=== PATIENT | female | born 1960 | race Caucasian/White ===

== ENCOUNTER → 2020-11-10 15:48 | Outpatient (CLI) | payer OTHER, SELFPAY ==
--- NOTE | 2020-11-10 | DI.MRI.S_ITS ---
PROCEDURE: MR KNEE LT WO CON INDICATIONS: other specified arthritis, left knee TECHNIQUE: Noncontrast sagittal PD fast spin echo and T2 fast spin echo with fat saturation, sagittal 3-D FLASH with fat saturation; coronal T1 spin echo and PD fast spin echo with fat saturation, and axial PD fast spin echo with fat saturation through the knee. COMPARISON: None. FINDINGS: Image quality: Degraded by body habitus and motion artifact. Menisci: Medial extrusion of the medial meniscus is present, which demonstrates linear and amorphous high signal intensity within its anterior horn, body, and posterior horn, demonstrating superior and inferior articular surface extension, indicating complex tearing. There is amorphous high signal intensity within the body of the lateral meniscus, demonstrating vague superior articular surface extension, suggestive of degenerative tearing. Cruciate ligaments: The anterior and posterior cruciate ligaments appear intact. Medial structures: The medial collateral ligament appears intact. Visualized portions of the pes anserinus tendons appear normal. No abnormal bursal fluid. Lateral structures: The lateral collateral ligament, long and short heads of the biceps femoris tendon appear intact. The popliteus tendon appears normal. Iliotibial band appears normal. Anterior structures: The quadriceps and patellar tendons appear intact. Patellar alignment is normal. No femoral trochlear dysplasia or ventral trochlear prominence. No edema in the infrapatellar fat pad. Bones and cartilage: No bone marrow contusions or fractures. There is mild subchondral degenerative marrow edema within the medial femoral condyle and medial tibial plateau. Severe tricompartmental periarticular osteophyte formation is present. Severe articular cartilage loss diffusely overlies the weight-bearing aspects of the medial femoral condyle and medial tibial plateau. Patellofemoral compartment articular cartilage is not well seen. Joint space: There is a moderate knee joint effusion and a trace Altman's cyst. Small ganglion cyst along the popliteus. Normal appearing synovial plicae are incidentally noted. IMPRESSION: 1. Limited examination secondary to body habitus and motion artifact. 2. Medial and lateral meniscal tearing. 3. Tricompartmental osteoarthritis with associated articular cartilage loss. 4. Knee joint effusion and Altman's cyst. Small ganglion cyst along the popliteus. Dictated by: Alexandra Smith M.D. on 11/11/2020 at 9:05 Approved by: Alexandra Smith M.D. on 11/11/2020 at 9:08
== END ==
PROVIDERS: Family Provider Family Medicine; PCP Family Medicine; Referring Provider Physician Assistant Medical; Visit Provider Physician Assistant Medical
DX: M13.862 Other specified arthritis, left knee (principal); S83.242A Other tear of medial meniscus, current injury, left knee, initial encounter; S83.282A Other tear of lateral meniscus, current injury, left knee, initial encounter; M25.462 Effusion, left knee; M71.22 Synovial cyst of popliteal space [Baker], left knee
CPT/HCPCS: 73721

== ENCOUNTER → 2022-01-14 10:02 | Outpatient (CLI) | payer OTHER, SELFPAY ==
[2022-01-14 11:00] LABS: COVID19 -Nasal RAPID Negative (Negative)
== END ==
PROVIDERS: Family Provider Family Medicine; PCP Family Medicine; Visit Provider Family Medicine Sleep Medicine
DX: Z20.822 Contact with and (suspected) exposure to COVID-19 (principal)
CPT/HCPCS: 87635; C9803

== ENCOUNTER 2022-01-17 06:46 | Day surgery (SDC) | payer OTHER, SELFPAY ==
[2022-01-17] VITALS (8 sets, daily range): BP systolic 114–154; BP diastolic 66–79; PULSE 59–72; RESP 8–16; TEMP 36.5–36.8; O2SAT 92–96; BMI 48.2
--- NOTE | 2022-01-17 | PATH_ITS ---
[facility] Accession Number: [id number] . 01 Material submitted: . PART A: colon - CECUM POLYP PART B: colon - ASCENDING COLON POLYP . 02 Diagnosis: A. Cecum, Polyp, Biopsy: Tubular adenoma. . B. Ascending Colon, Polyp, Biopsy: Tubular adenoma. V 01/20/2022 1542 Local . 02 Electronically signed: . Molly Serra MD, Pathologist NPI- [id number] . 01 Gross description: . Part A: CECUM POLYP: Received in formalin is 1 fragment(s) of maxwell, soft tissue measuring 0.2 x 0.2 x 0.1 cm submitted entirely in 1 cassette(s) Part B: ASCENDING COLON POLYP: Received in formalin is 1 fragment(s) of maxwell, soft tissue measuring 0.4 x 0.2 x 0.1 cm submitted entirely in 1 cassette(s) /S 01/18/2022 0831 Local . 02 Pathologist provided ICD-10: D12.0, D12.2 . 02 CPT . 343795, 048833 Specimen Comment: A courtesy copy of this report has been sent to [phone] Performed at: 01 [facility] [address], [place], [place] [id number] MD Dane Thrasher MD Phone: [phone] Performed at: 02 [facility] [address] [place], [place] [id number] MD Molly Serra MD Phone: [phone]
[2022-01-17] MEDS: SODIUM CHLORIDE 0.9% 1,000 ML 84 ML IV (08:04)
--- NOTE | 2022-01-17 08:10 | PM.HP.1 ---
History of Present Illness History of Present Illness Date Patient Seen: 01/17/22 Time Patient Seen: 08:11 Chief complaint: SDC Narrative: Indicated for colon cancer screening. Meds Home Medications and Allergies Home Medications Medication Instructions Recorded Confirmed Type paroxetine HCl 20 mg tablet (Paxil) 30 mg PO QDAY #0 05/18/11 01/17/22 History trazodone 50 mg tablet 50 mg PO QDAY #0 05/18/11 History Calcium Carbonate/Vitamin D 3,000 cap PO #0 09/01/11 History (#CALCIUM) Fish Oil (#FISH OIL) 1 iu PO #0 09/01/11 History cholecalciferol (vitamin D3) 25 1,000 iu PO #0 09/01/11 History mcg (1,000 unit) tablet (Vitamin D3) metoprolol tartrate 25 mg tablet 50 mg PO BID #0 09/01/11 01/17/22 History amlodipine 10 mg tablet 10 mg PO QDAY #0 10/10/17 01/17/22 History docusate sodium 100 mg capsule 100 mg PO BID #20 cap 10/14/17 01/17/22 Rx hydrocodone 5 mg-acetaminophen 325 1 - 2 tab PO Q4HP PRN #30 tab 10/14/17 01/17/22 Rx mg tablet mineral oil-chondrus 2.5 mL/5 mL 30 ml PO BID #720 ml 10/14/17 Rx oral emulsion (Kondremul) cetirizine 10 mg tablet 10 mg PO QDAY #0 10/25/17 01/17/22 History Allergies Allergy/AdvReac Type Severity Reaction Status Date / Time hydrocodone [HYDROCODONE] AdvReac Unknown NIGHTMARES Verified 01/17/22 08:04 Review of Systems Review of Systems ROS: Yes All systems reviewed with the patient and are negative except as otherwise documented Exam Const General: cooperative and comfortable Orientation: alert HENMT Head: normocephalic Ears: external ears normal Nose: external nose normal Face and sinus: normal facial exam Mouth: oral mucosae normal Eyes General: appearance normal, both eyes and all related structures Neck Neck: normal visual inspection Chest Chest: normal inspection of the chest Resp Effort & Inspection: normal respiratory effort Cardio Rate: regular rate GI Inspection: normal to inspection Skin General: no rashes or lesions noted and No jaundice Neuro General: patient alert and moves all extremities Cognition: normal cognition Speech: speech normal Extrem General: no pedal edema Psych Appearance: grossly normal Assessment & Plan Assessment & Plan narrative: 61-year-old female here for colon cancer screening. Colonoscopy is pursued today. Time Spent With Patient Critical Care time: I spent a total of [] minutes of critical care time on this patient's care today; this time is exclusive of procedural time.
--- NOTE | 2022-01-17 08:12 | PM.PREOP ---
Pre-operative Note COVID-19 COVID-19 status: Negative Result date/Date tested (Pos, Neg/Pending): 01/14/22 Criteria for continued procedure: Possibility delay results in more complex future surgery or treatment Interval Note History & Physical reviewed/Exam performed by Physician: Yes Changes to H&P: No ASA Class (for procedural sedation): III
--- NOTE | 2022-01-17 09:07 | PM.OP.COLON ---
Operative Date/Time/Diagnoses Date of procedure: 01/17/22 Time of procedure: 09:07 Pre-op diagnosis: Colon cancer screening Post-op diagnosis: same Procedure & Clinicians Study performed: Colonoscopy with hot snare polypectomy and cold forceps polypectomy Same procedure as scheduled: Yes Indications: Colon cancer screening Surgeon: Robin Fuentes Procedure Notes SCOAP/Timeout: Done Procedure in detail: After the risks and benefits were explained, written and verbal informed consent was obtained. The patient was brought into the procedure room and placed into the left lateral decubitus position. Please see nurse aviation technician aircraft notes for sedation details Digital rectal examination was accomplished. The scope was introduced into the patient and advanced under direct visualization to the cecum as identified by the appendiceal orifice and ileocecal valve. The scope was slowly withdrawn to carefully examine the mucosa for any defects or lesions. Comprehensive imaging was accomplished throughout the rectum including the dentate line. The colon was decompressed, the scope was then removed from the patient who tolerated the procedure well. Bowel prep adequate Adult colonoscope Scope withdrawal time: 11 minutes Sedation minutes: 19 Complications: none Impression: There was an end-to-side anastomosis that was patent and normal at around 20 cm from the anal verge. There were some scattered diverticula in the left colon proximal to the anastomosis. In the ascending colon there was an approximately 6 mm sessile polyp removed with hot snare. In the cecum there was a diminutive 4 mm polyp removed with cold forceps. Endoscopic diagnosis 1. Diverticulosis 2. Patent left colon anastomosis 3. Colon polyps Post-procedure Plan for aftercare: 1. Await histopathology 2. Surveillance colonoscopy timing will be contingent on pathology results. Disposition: PACU
== END 2022-01-17 10:01 | disposition home or self-care (01) ==
PROVIDERS: Family Provider Family Medicine; PCP Physician Assistant; Referring Provider Internal Medicine Gastroenterology; Visit Provider Internal Medicine Gastroenterology
PROC: 0DJD8ZZ Inspection of Lower Intestinal Tract, Via Natural or Artificial Opening Endoscopic (ICD-10-PCS; CPT 45378; principal; 2022-01-17 08:30)
DX: Z12.11 Encounter for screening for malignant neoplasm of colon (principal); K57.30 Diverticulosis of large intestine without perforation or abscess without bleeding; D12.0 Benign neoplasm of cecum; D12.2 Benign neoplasm of ascending colon
CPT/HCPCS: 45385; 45380; J2704

== ENCOUNTER 2022-02-25 22:00 | Emergency (ER) | payer OTHER, SELFPAY ==
--- NOTE | 2022-02-25 22:04 | DI.RAD.S_ITS ---
PROCEDURE: XR CHEST 1V INDICATIONS: chest pain TECHNIQUE: One view of the chest was acquired. COMPARISON: None. FINDINGS: Surgical changes and devices: None. Lungs and pleura: Lungs are clear. No pleural effusions or pneumothorax. Mediastinum: Mediastinal contours appear normal. Heart size is normal. Bones and chest wall: No suspicious bony lesions. Overlying soft tissues appear unremarkable. IMPRESSION: 1. No acute cardiopulmonary disease. Dictated by: Dane Howard M.D. on 02/25/2022 at 23:25 Approved by: Dane Howard M.D. on 02/25/2022 at 23:26
[2022-02-25 22:07] VITALS: BP 177/79; PULSE 70; O2SAT 96
[2022-02-25 22:12] VITALS: BP 177/79; PULSE 71; RESP 18; TEMP 36.9; O2SAT 97; BMI 48.2
[2022-02-25 22:19] LABS: Add Manual Diff / Slide Review NO; Basophils Absolute Auto 100 /uL (0-100); Basophils Percent Auto 0.7 % (0-2); Eosinophils Absolute Auto 200 /uL (0-450); Eosinophils Percent Auto 1.9 % (2-4); Hematocrit 39.7 % (36-46); Hemoglobin 13.7 g/dL (12.0-16.0); Lymphocytes Absolute Auto 3000 /uL (1100-4500); Lymphocytes Percent Auto 36.7 % (25-40); Mean Corpuscular HGB Conc 34.4 % (30-36); Mean Corpuscular Hemoglobin 31.1 PG (26-34); Mean Corpuscular Volume 90.5 fL (80-100); Monocytes Absolute Auto 700 /uL (0-900); Monocytes Percent Auto 8.9 % (3-14); Neutrophils Absolute Auto 4300 /uL (1500-7000); Neutrophils Percent Auto 51.8 % (50-75); Platelet Count 323 X10^3/uL (150-400); Red Blood Cell Count 4.39 X10^6/uL (4.0-5.2); Red Cell Distribution Width 13.9 % (11.6-14.8); White Blood Cell Count 8.3 X10^3/uL (4.5-11.0)
[2022-02-25 22:30] VITALS: BP 145/66; PULSE 62; RESP 21; O2SAT 96
[2022-02-25 22:30] LABS: Alanine Aminotransferase 37 IU/L (<35); Albumin 4.1 g/dL (3.5-5.0); Albumin Globulin Ratio 1.2 (1.0-2.8); Alkaline Phosphatase 122 U/L (38-126); Aspartate Aminotransferase 33 IU/L (14-36); BUN Creatinine Ratio 37.1 (6-22); Bilirubin Total 0.6 mg/dL (0.2-1.3); Blood Urea Nitrogen 26 mg/dL (7-17); Calcium 8.7 mg/dL (8.4-10.2); Carbon Dioxide 28 mmol/L (22-32); Chloride 101 mmol/L (98-107); Creatine Kinase 130 U/L (30-135); Estimated Glomerular Filt Rate > 60 mL/min (>60); Globulin 3.3 g/dL (1.7-4.1); Glucose 136 mg/dL (80-110); Lipase 102 U/L (23-300); Potassium 3.7 mmol/L (3.4-5.1); Sodium 139 mmol/L (137-145); Total Protein 7.4 g/dL (6.3-8.2)
[2022-02-25 22:41] LABS: Troponin I < 0.012 ng/mL (0.01-0.034)
--- NOTE | 2022-02-25 22:42 | ED_ITS ---
HPI - General Adult General Chief complaint: Shortness of Breath/Dyspnea Stated complaint: Heart troubles Time Seen by Provider: 02/25/22 22:03 Source: patient Mode of arrival: Ambulatory History of Present Illness HPI narrative: 61-year old female here for evaluation fatigue in generally not feeling well. She also states she had some shortness of breath. Symptoms started when she was lying in bed. Denied chest pain. No nausea vomiting. No headache. No chest pain. No coughing. No fevers. No abdominal pain. No skin rashes. No change in bowel habits. She states that she checked her oxygen saturations at home the rate 88%. She recently had an extensive cardiac workup by her director of occupational health. They did make some medication changes. No recommendation for interventional evaluation. Has not tried anything for the symptoms prior to arrival. She has taken all of her medications as directed. Related Data Home Medications Medication Instructions Recorded Confirmed paroxetine HCl 20 mg tablet (Paxil) 30 mg PO QDAY ##0 05/18/11 01/17/22 trazodone 50 mg tablet 50 mg PO QDAY ##0 05/18/11 Calcium Carbonate/Vitamin D 3,000 cap PO ##0 09/01/11 (#CALCIUM) Fish Oil (#FISH OIL) 1 iu PO ##0 09/01/11 cholecalciferol (vitamin D3) 25 1,000 iu PO ##0 09/01/11 mcg (1,000 unit) tablet (Vitamin D3) metoprolol tartrate 25 mg tablet 50 mg PO BID ##0 09/01/11 01/17/22 amlodipine 10 mg tablet 10 mg PO QDAY ##0 10/10/17 01/17/22 cetirizine 10 mg tablet 10 mg PO QDAY ##0 10/25/17 01/17/22 Previous Rx's Medication Instructions Recorded docusate sodium 100 mg capsule 100 mg PO BID #20 caps 10/14/17 hydrocodone 5 mg-acetaminophen 325 1 - 2 tab PO Q4HP PRN #30 tabs 10/14/17 mg tablet mineral oil-chondrus 2.5 mL/5 mL 30 ml PO BID #720 mL 10/14/17 oral emulsion (Kondremul) Allergies Allergy/AdvReac Type Severity Reaction Status Date / Time hydrocodone [HYDROCODONE] AdvReac Unknown NIGHTMARES Verified 01/17/22 08:04 Review of Systems Constitutional Constitutional: Denies chills, Reports fatigue, Denies fever(s) and Denies headache(s) ENT Ears, Nose, Mouth, and Throat: Denies headache(s) Cardiovascular Cardiovascular: Denies chest pain and Denies rapid heart rate Respiratory Respiratory: Reports as per HPI and Reports system reviewed and no additional complaints, except as documented Gastrointestinal Gastrointestinal: Reports system reviewed and no additional complaints, except as documented Musculoskeletal Musculoskeletal: Reports system reviewed and no additional complaints, except as documented Integumentary/Breasts Skin/Breast: Reports system reviewed and no additional complaints, except as documented Neurologic Neurologic: Denies headache(s) Endocrine Endocrine: Reports fatigue Hematologic/Lymphatic On Anticoagulants: No Patient History Medical History Diverticula of colon Social History household members: none Smoking Status: Never smoker alcohol intake: never Smoking Status: Never smoker Substance Use Type: does not use Exam Initial Vital Signs Initial Vital Signs: Vital Signs Pulse Rate 70 02/25/22 22:07 Blood Pressure 177/79 H 02/25/22 22:07 Pulse Oximetry 96 02/25/22 22:07 Const General: cooperative and comfortable HENMT Head: normal to inspection Resp Effort & Inspection: normal respiratory effort Auscultation: clear to auscultation bilaterally Cardio Rate: regular rate Rhythm: regular rhythm Skin General: no rashes or lesions noted Neuro General: patient alert, patient awake and moves all extremities Extrem General: normal to inspection and capillary refill normal Psych Appearance: grossly normal Course Orders Ordered: ED Orders 02/25/22 22:04 XR chest 1V Stat EKG-12 Lead Stat 02/25/22 22:12 Complete Blood Count AUTO DIFF Stat Comprehensive Metabolic Panel Stat Lipase Stat Troponin & CK Cardiac Panel Stat 02/26/22 00:15 Troponin I Stat Vital Signs Vital signs: Vital Signs - 8 hr 02/25/22 22:12 02/25/22 22:07 02/25/22 22:07 Temperature 98.4 F Pulse Rate 71 70 Respiratory Rate 18 Blood Pressure 177/79 H 177/79 H Pulse Oximetry 97 96 Oxygen Delivery Method Room Air 02/25/22 22:30 02/25/22 22:30 02/25/22 23:00 Temperature Pulse Rate 62 61 Respiratory Rate 21 28 H Blood Pressure 145/66 H Pulse Oximetry 96 96 Oxygen Delivery Method 02/25/22 23:01 02/25/22 23:01 02/25/22 23:30 Temperature Pulse Rate 61 Respiratory Rate 15 Blood Pressure 153/72 H 147/68 H Pulse Oximetry 95 Oxygen Delivery Method 02/25/22 23:30 02/26/22 00:00 02/26/22 00:01 Temperature Pulse Rate 62 58 L 56 L Respiratory Rate 38 H 16 20 Blood Pressure Pulse Oximetry 95 93 92 Oxygen Delivery Method Room Air Room Air 02/26/22 00:01 02/26/22 00:30 02/26/22 00:30 Temperature Pulse Rate 56 L Respiratory Rate 21 Blood Pressure 106/52 L 149/72 H Pulse Oximetry 94 Oxygen Delivery Method 02/26/22 01:00 02/26/22 01:00 Temperature Pulse Rate 54 L Respiratory Rate 19 Blood Pressure 156/74 H Pulse Oximetry 95 Oxygen Delivery Method Room Air Medical Decision Making Lab Data Lab results reviewed: Yes I reviewed the patient's lab results. Result diagrams: 02/25/22 22:12 02/25/22 22:12 Labs: Lab Results 02/25/22 02/25/22 02/26/22 Range/Units 22:12 22:12 00:15 WBC 8.3 (4.5-11.0) X10^3/uL RBC 4.39 (4.0-5.2) X10^6/uL Hgb 13.7 (12.0-16.0) g/dL Hct 39.7 (36-46) % MCV 90.5 (80-100) fL MCH 31.1 (26-34) PG MCHC 34.4 (30-36) % RDW 13.9 (11.6-14.8) % Plt Count 323 (150-400) X10^3/uL Neut % (Auto) 51.8 (50-75) % Lymph % (Auto) 36.7 (25-40) % [place] % (Auto) 8.9 (3-14) % Eos % (Auto) 1.9 L (2-4) % Baso % (Auto) 0.7 (0-2) % Neut # (Auto) 4300 (8035-1966) /uL Lymph # (Auto) 3000 (7222-7113) /uL [place] # (Auto) 700 (0-900) /uL Eos # (Auto) 200 (0-450) /uL Baso # (Auto) 100 (0-100) /uL Sodium 139 (137-145) mmol/L Potassium 3.7 (3.4-5.1) mmol/L Chloride 101 (98-107) mmol/L Carbon Dioxide 28 (22-32) mmol/L BUN 26 H (7-17) mg/dL Creatinine 0.70 (0.52-1.04) mg/dL Estimated GFR > 60 (>60) mL/min BUN/Creatinine Ratio 37.1 H (6-22) Glucose 136 H (80-110) mg/dL Calcium 8.7 (8.4-10.2) mg/dL Total Bilirubin 0.6 (0.2-1.3) mg/dL AST 33 (14-36) IU/L ALT 37 H (<35) IU/L Alkaline Phosphatase 122 (38-126) U/L Total Creatine Kinase 130 (30-135) U/L CK-MB (CK-2) 1.53 (<2.37) ng/mL CK-MB (CK-2) Rel Index 1.2 L (1.5-5.0) % Troponin I < 0.012 < 0.012 (0.01-0.034) ng/mL Total Protein 7.4 (6.3-8.2) g/dL Albumin 4.1 (3.5-5.0) g/dL Globulin 3.3 (1.7-4.1) g/dL Albumin/Globulin Ratio 1.2 (1.0-2.8) Lipase 102 (23-300) U/L Imaging Data Chest x-ray: Radiologist's Impression: [address] [address] XRay Report Signed Patient: Janet Meraz MR#: [id number] : 1960 Acct:[id number] Age/Sex: 61 / F Date of Service: 02/25/22 Loc: ED Accession Number: [id number] ?? Procedure: XR chest 1V Ordering Provider: Keshawn Nogueira D.O. PROCEDURE:? XR CHEST 1V ? INDICATIONS:? chest pain ? TECHNIQUE:? One view of the chest was acquired.? ? COMPARISON:? None. ? FINDINGS:? ? Surgical changes and devices:? None.? ? Lungs and pleura:? Lungs are clear.? No pleural effusions or pneumothorax.? ? Mediastinum:? Mediastinal contours appear normal.? Heart size is normal.? ? Bones and chest wall:? No suspicious bony lesions.? Overlying soft tissues appear unremarkable.? ? IMPRESSION:? ? 1.? No acute cardiopulmonary disease. ? ? ? Dictated by: Dane Howard M.D. on 02/25/2022 at 23:25 ? ? Approved by: Dane Howard M.D. on 02/25/2022 at 23:26 ECG Data Attestation: I personally reviewed and interpreted this ECG as follows: Interpretation: Sinus rhythm Ventricular rate is 65 Normal axis Normal QRS Normal QTC Nonspecific STT wave change in MDM Narrative Medical decision making narrative: Nonspecific changes on the EKG. Troponins negative x2. She has no chest pain. Chest x-ray is unremarkable. Lungs were clear. Not hypoxic here in the ER. She has into the care of cardiology. Has been taking her medications as directed. Will discharge patient home to follow-up with her director of occupational health on Monday. She was given return precautions. She expressed understanding and agreement. Discharge Plan Departure Patient Disposition: Home Clinical Impression: Shortness of Breath, Fatigue Instructions: DI for Shortness of Breath Activity Restrictions/Additional Instructions: Recommend that you continue to take all of your medications as directed and Monday contact your primary director of occupational health for follow-up. Until then return to the emergency department for any new or worsening symptoms. Prescriptions: No Action trazodone 50 MG tablet 50 mg PO QDAY Qty: 0 paroxetine HCl [Paxil] 20 MG tablet 30 mg PO QDAY Qty: 0 metoprolol tartrate 25 MG tablet 50 mg PO BID Qty: 0 cholecalciferol (vitamin D3) [Vitamin D3] 1,000 UNIT tablet 1,000 iu PO Qty: 0 Fish Oil (#FISH OIL) 1 iu PO Qty: 0 Calcium Carbonate/Vitamin D (#CALCIUM) 3,000 cap PO Qty: 0 amlodipine 10 MG tablet 10 mg PO QDAY Qty: 0 docusate sodium 100 MG capsule 100 mg PO BID Qty: 20 1RF mineral oil-chondrus [Kondremul] 2.5 ML/5 ML emulsion 30 ml PO BID Qty: 720 1RF hydrocodone-acetaminophen 5 MG/325 MG tablet 1 - 2 tab PO Q4HP PRNQty: 30 0RF cetirizine 10 MG tablet 10 mg PO QDAY Qty: 0 Referrals: Juanita Serrano PA-C [Primary Care Provider] - Visit Report Forms: Patient Portal/API
[2022-02-25 22:45] LABS: CKMB % Relative Index 1.2 % (1.5-5.0); Creatine Kinase MB 1.53 ng/mL (<2.37); HEMOLYSIS 18 (0-50)
[2022-02-25 23:00] VITALS: PULSE 61; RESP 28; O2SAT 96
[2022-02-25 23:01] VITALS: BP 153/72; PULSE 61; RESP 15; O2SAT 95
[2022-02-25 23:30] VITALS: BP 147/68; PULSE 62; RESP 38; O2SAT 95
[2022-02-26] VITALS: PULSE 58; RESP 16; O2SAT 93
[2022-02-26 00:01] VITALS: BP 106/52; PULSE 56; RESP 20; O2SAT 92
[2022-02-26 00:30] VITALS: BP 149/72; PULSE 56; RESP 21; O2SAT 94
[2022-02-26 00:43] LABS: Troponin I < 0.012 ng/mL (0.01-0.034)
[2022-02-26 01:00] VITALS: BP 156/74; PULSE 54; RESP 19; O2SAT 95
== END 2022-02-26 01:23 | disposition home or self-care (01) ==
PROVIDERS: Emergency Provider Emergency Medicine; Family Provider Family Medicine; PCP Physician Assistant
DX: R06.02 Shortness of breath (principal); R53.83 Other fatigue; R07.9 Chest pain, unspecified
CPT/HCPCS: 36415; 71045; 80053; 82550; 82553; 83690; 84484; 85025; 93005; 93010; 99283

== ENCOUNTER 2022-05-18 14:28 | Emergency (ER) | payer OTHER, SELFPAY ==
[2022-05-18] VITALS (8 sets, daily range): BP systolic 151–187; BP diastolic 67–81; PULSE 59–65; RESP 22; TEMP 36.6; O2SAT 95–97; BMI 47.0
--- NOTE | 2022-05-18 14:41 | DI.RAD.S_ITS ---
PROCEDURE: XR CHEST 1V INDICATIONS: chest pain TECHNIQUE: One view of the chest was acquired. COMPARISON: [facility], CR, XR CHEST 1V, 02/25/2022, 22:12. FINDINGS: Surgical changes and devices: None. Lungs and pleura: Lungs are clear. No pleural effusions or pneumothorax. Mediastinum: Mediastinal contours appear normal. Heart size is normal. Bones and chest wall: No suspicious bony lesions. Overlying soft tissues appear unremarkable. IMPRESSION: No acute cardiopulmonary pathology. Dictated by: Rikki Matthews M.D. on 05/18/2022 at 16:09 Approved by: Rikki Matthews M.D. on 05/18/2022 at 16:09
[2022-05-18 15:24] LABS: Alanine Aminotransferase 50 IU/L (<35); Albumin 4.5 g/dL (3.5-5.0); Albumin Globulin Ratio 1.2 (1.0-2.8); Alkaline Phosphatase 93 U/L (38-126); Aspartate Aminotransferase 41 IU/L (14-36); BUN Creatinine Ratio 29.2 (6-22); Bilirubin Total 0.9 mg/dL (0.2-1.3); Blood Urea Nitrogen 19 mg/dL (7-17); Calcium 9.1 mg/dL (8.4-10.2); Carbon Dioxide 30 mmol/L (22-32); Chloride 101 mmol/L (98-107); Creatine Kinase 73 U/L (30-135); Estimated Glomerular Filt Rate > 60 mL/min (>60); Globulin 3.7 g/dL (1.7-4.1); Glucose 94 mg/dL (80-110); HEMOLYSIS 22 (0-50); Lipase 166 U/L (23-300); Magnesium 1.8 mg/dL (1.6-2.3); Sodium 139 mmol/L (137-145); Total Protein 8.2 g/dL (6.3-8.2)
[2022-05-18 15:26] LABS: Add Manual Diff / Slide Review NO; Basophils Absolute Auto 0 /uL (0-100); Basophils Percent Auto 0.6 % (0-2); Eosinophils Absolute Auto 200 /uL (0-450); Hematocrit 44.8 % (36-46); Hemoglobin 15.3 g/dL (12.0-16.0); Lymphocytes Absolute Auto 2400 /uL (1100-4500); Lymphocytes Percent Auto 29.6 % (25-40); Mean Corpuscular HGB Conc 34.1 % (30-36); Mean Corpuscular Hemoglobin 31.3 PG (26-34); Mean Corpuscular Volume 91.6 fL (80-100); Monocytes Absolute Auto 700 /uL (0-900); Monocytes Percent Auto 9.2 % (3-14); Neutrophils Absolute Auto 4700 /uL (1500-7000); Neutrophils Percent Auto 58.6 % (50-75); Platelet Count 383 X10^3/uL (150-400); Red Blood Cell Count 4.88 X10^6/uL (4.0-5.2)
[2022-05-18 15:34] LABS: Troponin I < 0.012 ng/mL (0.01-0.034)
--- NOTE | 2022-05-18 16:21 | ED_ITS ---
HPI - Chest Pain <MOOSE Mesa - Last Filed: 05/18/22 19:05> General Chief Complaint: Chest Pain Stated Complaint: High BP, Left arm pain Time Seen by Provider: 05/18/22 15:47 Source: patient Mode of arrival: Ambulatory Limitations: no limitations History of Present Illness HPI narrative: This is a 61-year-old female with history of hypertension on losartan and amlodipine with recent heart catheterization without abnormality who presents to the emergency department today for ongoing shoulder tightness and pain which radiates to her left arm and elevated blood pressures with systolics over 200 since last night. Patient states that she has been gardening quite a bit the last few days and now has tenderness her left shoulder base of her left neck without any traumatic injury. Related Data Home Medications Medication Instructions Recorded Confirmed paroxetine HCl 20 mg tablet (Paxil) 30 mg PO QDAY ##0 05/18/11 01/17/22 trazodone 50 mg tablet 50 mg PO QDAY ##0 05/18/11 Calcium Carbonate/Vitamin D 3,000 cap PO ##0 09/01/11 (#CALCIUM) Fish Oil (#FISH OIL) 1 iu PO ##0 09/01/11 cholecalciferol (vitamin D3) 25 1,000 iu PO ##0 09/01/11 mcg (1,000 unit) tablet (Vitamin D3) metoprolol tartrate 25 mg tablet 50 mg PO BID ##0 09/01/11 01/17/22 amlodipine 10 mg tablet 10 mg PO QDAY ##0 10/10/17 01/17/22 cetirizine 10 mg tablet 10 mg PO QDAY ##0 10/25/17 01/17/22 losartan 50 mg-hydrochlorothiazide 50 tab PO DAILY 05/18/22 05/18/22 12.5 mg tablet Previous Rx's Medication Instructions Recorded docusate sodium 100 mg capsule 100 mg PO BID #20 caps 10/14/17 hydrocodone 5 mg-acetaminophen 325 1 - 2 tab PO Q4HP PRN #30 tabs 10/14/17 mg tablet mineral oil-chondrus 2.5 mL/5 mL 30 ml PO BID #720 mL 10/14/17 oral emulsion (Kondremul) diazepam 2 mg tablet (Valium) 2 mg PO TID PRN muscle spasm #10 05/18/22 tabs diclofenac sodium 1 % topical gel 2 g topical QID PRN neck pain #100 05/18/22 grams lidocaine 5 % topical patch 1 patch topical DAILY #15 ea 05/18/22 (Lidoderm) methocarbamol 500 mg tablet 500 mg PO BEDTIME PRN muscle spasm 05/18/22 #14 tabs tramadol 50 mg tablet 50 mg PO DAILY #10 tabs 05/18/22 Allergies Allergy/AdvReac Type Severity Reaction Status Date / Time hydrocodone [HYDROCODONE] AdvReac Unknown NIGHTMARES Verified 05/18/22 14:39 Patient History <MOOSE Mesa - Last Filed: 05/18/22 19:05> Medical History Diverticula of colon Social History household members: none Smoking Status: Never smoker alcohol intake: never Smoking Status: Never smoker alcohol intake frequency: other Substance Use Type: does not use Exam <MOOSE Mesa - Last Filed: 05/18/22 19:05> Initial Vital Signs Initial Vital Signs: Vital Signs Temperature 97.9 F 05/18/22 14:32 Pulse Rate 63 05/18/22 14:32 Respiratory Rate 05/18/22 14:32 Blood Pressure 160/77 H 05/18/22 14:32 Pulse Oximetry 96 05/18/22 14:32 Oxygen Delivery Method 05/18/22 14:32 <Lexi Beltrán DO - Last Filed: 05/19/22 11:14> Initial Vital Signs Initial Vital Signs: Vital Signs Temperature 97.9 F 05/18/22 14:32 Pulse Rate 63 05/18/22 14:32 Respiratory Rate 22 05/18/22 14:32 Blood Pressure 160/77 H 05/18/22 14:32 Pulse Oximetry 96 05/18/22 14:32 Oxygen Delivery Method 05/18/22 14:32 Course <MOOSE Mesa - Last Filed: 05/18/22 19:05> Orders Ordered: Discontinued Medications Diazepam (Diazepam 10 Mg/2 Ml Syringe) 2 mg IV NOW ONE Stop: 05/18/22 17:36 Last Admin: 05/18/22 17:55 Dose: 2 mg Documented By: ALFRED Ketorolac Tromethamine (Ketorolac 30 Mg/Ml Vial) 15 mg IV NOW ONE Stop: 05/18/22 17:09 Last Admin: 05/18/22 17:16 Dose: 15 mg Documented By: ALFRED Methocarbamol (Methocarbamol 500 Mg Tablet) 500 mg PO NOW ONE Stop: 05/18/22 17:09 Last Admin: 05/18/22 17:16 Dose: 500 mg Documented By: ALFRED Vital Signs Vital signs: Vital Signs - 8 hr 05/18/22 14:32 05/18/22 16:53 05/18/22 16:54 Temperature 97.9 F Pulse Rate 63 Respiratory Rate 22 Blood Pressure 160/77 H 187/81 H Pulse Oximetry 96 97 Oxygen Delivery Method Room Air 05/18/22 16:54 05/18/22 17:00 05/18/22 17:30 Temperature Pulse Rate 61 62 60 Respiratory Rate Blood Pressure Pulse Oximetry 97 97 96 Oxygen Delivery Method 05/18/22 18:11 05/18/22 18:12 05/18/22 18:12 Temperature Pulse Rate 65 60 Respiratory Rate Blood Pressure 151/67 H Pulse Oximetry 95 96 Oxygen Delivery Method 05/18/22 18:30 05/18/22 18:30 Temperature Pulse Rate 59 L Respiratory Rate Blood Pressure 163/75 H Pulse Oximetry 97 Oxygen Delivery Method <Lexi Beltrán, - Last Filed: 05/19/22 11:14> Orders Ordered: Discontinued Medications Diazepam (Diazepam 10 Mg/2 Ml Syringe) 2 mg IV NOW ONE Stop: 05/18/22 17:36 Last Admin: 05/18/22 17:55 Dose: 2 mg Documented By: ALFRED Ketorolac Tromethamine (Ketorolac 30 Mg/Ml Vial) 15 mg IV NOW ONE Stop: 05/18/22 17:09 Last Admin: 05/18/22 17:16 Dose: 15 mg Documented By: ALFRED Methocarbamol (Methocarbamol 500 Mg Tablet) 500 mg PO NOW ONE Stop: 05/18/22 17:09 Last Admin: 05/18/22 17:16 Dose: 500 mg Documented By: ALFRED Vital Signs Vital signs: Vital Signs - 8 hr 05/18/22 14:32 05/18/22 16:53 05/18/22 16:54 Temperature 97.9 F Pulse Rate 63 Respiratory Rate 22 Blood Pressure 160/77 H 187/81 H Pulse Oximetry 96 97 Oxygen Delivery Method Room Air 05/18/22 16:54 05/18/22 17:00 05/18/22 17:30 Temperature Pulse Rate 61 62 60 Respiratory Rate Blood Pressure Pulse Oximetry 97 97 96 Oxygen Delivery Method 05/18/22 18:11 05/18/22 18:12 05/18/22 18:12 Temperature Pulse Rate 65 60 Respiratory Rate Blood Pressure 151/67 H Pulse Oximetry 95 96 Oxygen Delivery Method 05/18/22 18:30 05/18/22 18:30 Temperature Pulse Rate 59 L Respiratory Rate Blood Pressure 163/75 H Pulse Oximetry 97 Oxygen Delivery Method MDM - Chest Pain <MOOSE Mesa - Last Filed: 05/18/22 19:05> Lab Data Result diagrams: 05/18/22 15:00 05/18/22 15:00 Labs: Lab Results 05/18/22 05/18/22 05/18/22 Range/Units 15:00 15:00 15:00 WBC 8.0 (4.5-11.0) X10^3/uL RBC 4.88 (4.0-5.2) X10^6/uL Hgb 15.3 (12.0-16.0) g/dL Hct 44.8 (36-46) % MCV 91.6 (80-100) fL MCH 31.3 (26-34) PG MCHC 34.1 (30-36) % RDW 14.0 (11.6-14.8) % Plt Count 383 (150-400) X10^3/uL Neut % (Auto) 58.6 (50-75) % Lymph % (Auto) 29.6 (25-40) % Towner % (Auto) 9.2 (3-14) % Eos % (Auto) 2.0 (2-4) % Baso % (Auto) 0.6 (0-2) % Neut # (Auto) 4700 (8886-1010) /uL Lymph # (Auto) 2400 (9755-1269) /uL Towner # (Auto) 700 (0-900) /uL Eos # (Auto) 200 (0-450) /uL Baso # (Auto) 0 (0-100) /uL Sodium 139 (137-145) mmol/L Potassium 4.0 (3.4-5.1) mmol/L Chloride 101 (98-107) mmol/L Carbon Dioxide 30 (22-32) mmol/L BUN 19 H (7-17) mg/dL Creatinine 0.65 (0.52-1.04) mg/dL Estimated GFR > 60 (>60) mL/min BUN/Creatinine Ratio 29.2 H (6-22) Glucose 94 (80-110) mg/dL Calcium 9.1 (8.4-10.2) mg/dL Magnesium 1.8 (1.6-2.3) mg/dL Total Bilirubin 0.9 (0.2-1.3) mg/dL AST 41 H (14-36) IU/L ALT 50 H (<35) IU/L Alkaline Phosphatase 93 (38-126) U/L Total Creatine Kinase 73 (30-135) U/L CK-MB (CK-2) TNP CK-MB (CK-2) Rel Index TNP Troponin I < 0.012 (0.01-0.034) ng/mL NT-Pro-B Natriuret Pep 70 (<125) pg/mL Total Protein 8.2 (6.3-8.2) g/dL Albumin 4.5 (3.5-5.0) g/dL Globulin 3.7 (1.7-4.1) g/dL Albumin/Globulin Ratio 1.2 (1.0-2.8) Lipase 166 (23-300) U/L TSH (0.47-4.68) uIU/mL Urine Color Urine Appearance Urine pH (4.5-8.0) Ur Specific [place] (1.000-1.035) Urine Protein (Negative) Urine Glucose (UA) (Negative) g/dL Urine Ketones (NEGATIVE) Urine Occult Blood (Negative) Urine Nitrate (Negative) Urine Bilirubin (NEGATIVE) Urine Urobilinogen (0.2) E.U./dL Ur Leukocyte Esterase (NEGATIVE) Urine RBC (0-5/HPF) Urine WBC (0-5/HPF) Ur Squamous Epith Cells (0-5/HPF) Urine Bacteria (None) Ur Culture Indicated? 05/18/22 05/18/22 Range/Units 15:00 18:10 WBC (4.5-11.0) X10^3/uL RBC (4.0-5.2) X10^6/uL Hgb (12.0-16.0) g/dL Hct (36-46) % MCV (80-100) fL MCH (26-34) PG MCHC (30-36) % RDW (11.6-14.8) % Plt Count (150-400) X10^3/uL Neut % (Auto) (50-75) % Lymph % (Auto) (25-40) % Towner % (Auto) (3-14) % Eos % (Auto) (2-4) % Baso % (Auto) (0-2) % Neut # (Auto) (7051-1988) /uL Lymph # (Auto) (5812-1973) /uL Towner # (Auto) (0-900) /uL Eos # (Auto) (0-450) /uL Baso # (Auto) (0-100) /uL Sodium (137-145) mmol/L Potassium (3.4-5.1) mmol/L Chloride (98-107) mmol/L Carbon Dioxide (22-32) mmol/L BUN (7-17) mg/dL Creatinine (0.52-1.04) mg/dL Estimated GFR (>60) mL/min BUN/Creatinine Ratio (6-22) Glucose (80-110) mg/dL Calcium (8.4-10.2) mg/dL Magnesium (1.6-2.3) mg/dL Total Bilirubin (0.2-1.3) mg/dL AST (14-36) IU/L ALT (<35) IU/L Alkaline Phosphatase (38-126) U/L Total Creatine Kinase (30-135) U/L CK-MB (CK-2) CK-MB (CK-2) Rel Index Troponin I (0.01-0.034) ng/mL NT-Pro-B Natriuret Pep (<125) pg/mL Total Protein (6.3-8.2) g/dL Albumin (3.5-5.0) g/dL Globulin (1.7-4.1) g/dL Albumin/Globulin Ratio (1.0-2.8) Lipase (23-300) U/L TSH 2.91 (0.47-4.68) uIU/mL Urine Color Yellow Urine Appearance Clear Urine pH 5.0 (4.5-8.0) Ur Specific [place] 1.025 (1.000-1.035) Urine Protein Negative (Negative) Urine Glucose (UA) Trace H (Negative) g/dL Urine Ketones Negative (NEGATIVE) Urine Occult Blood Negative (Negative) Urine Nitrate Negative (Negative) Urine Bilirubin Negative (NEGATIVE) Urine Urobilinogen 0.2 (0.2) E.U./dL Ur Leukocyte Esterase Negative (NEGATIVE) Urine RBC None seen (0-5/HPF) Urine WBC 0-1/hpf (0-5/HPF) Ur Squamous Epith Cells 0-1 /hpf (0-5/HPF) Urine Bacteria Few (2-10) H (None) Ur Culture Indicated? Cult not indicated Imaging Data Chest x-ray: Radiologist's Impression: PROCEDURE:? XR CHEST 1V ? INDICATIONS:? chest pain ? TECHNIQUE:? One view of the chest was acquired.? ? COMPARISON:? [facility], , XR CHEST 1V, 02/25/2022, 22:12. ? FINDINGS:? ? Surgical changes and devices:? None.? ? Lungs and pleura:? Lungs are clear.? No pleural effusions or pneumothorax.? ? Mediastinum:? Mediastinal contours appear normal.? Heart size is normal.? ? Bones and chest wall:? No suspicious bony lesions.? Overlying soft tissues appear unremarkable.? ? IMPRESSION:? No acute cardiopulmonary pathology. ? ? Dictated by: Rikki Matthews M.D. on 05/18/2022 at 16:09 ? ? Approved by: Rikki Matthews M.D. on 05/18/2022 at 16:09 ? XR cervical spine: Radiologist's Impression: PROCEDURE:? XR CERVICAL SPINE 2V OR 3V ? INDICATIONS:? DDD? ? TECHNIQUE:? 3 view(s) of the cervical spine were acquired.? ? COMPARISON:? None. ? FINDINGS:? ? Bones:? No fractures or dislocations to the C6 level.? Multilevel disc space narrowing and endplate osteophyte formation.? Facet hypertrophy throughout the mid and lower cervical spine.? The lateral masses of C1 appear intact on the odontoid view.? No suspicious bony lesions.? ? Soft tissues:? No prevertebral soft tissue swelling.? ? ? IMPRESSION:? 1. Multilevel degenerative disc and facet disease. 2. No acute fracture. No osseous lesion. If symptoms and/or clinical suspicion for pathology persist, further assessment with repeat, or advanced imaging (e.g., CT, MRI, or bone scan) may be helpful for further assessment. ? ? Dictated by: Alexandra Smith M.D. on 05/18/2022 at 18:11 ? ? Approved by: Alexandra Smith M.D. on 05/18/2022 at 18:12 ? ECG Data Interpretation: EKG independently reviewed by Dr. Beltrán and reveals normal sinus rhythm at 63 bpm with regular axis and intervals. LVH by Quigley criteria. No STEMI, ST segment changes, arrhythmia, or acute ischemic changes. MDM Narrative Medical decision making narrative: This is a 61-year-old female who presents to the emergency department left-sided shoulder, arm, neck pain which is reproducible and for her hypertension. Patient states that last night her blood pressure was elevated to systolics of 220s and similar until this morning. She called her primary care office who instructed her to take an extra amlodipine and losartan and patient did this and brought her blood pressure down to 170 systolic. 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 Patient denies any numbness or tingling or decreased sensation, she denies any weakness, vision changes, headaches, shortness of breath, chest pain, difficulty breathing, or other sensation. She has reproducible tenderness to her left trapezius from her neck to her shoulder without any decreased range of motion or strength. Patient was initially hypertensive today with systolics around 200, she took her regular medications today, she was treated with Valium, methocarbamol, Toradol and her blood pressure came down over the next few hours. Patient's pain improved greatly, she denied any recurrence of the pain. Her EKG does not show any acute ST changes, she has LVH by quigley criteria and her lab work overall was reassuring. She does not have any leukocytosis, anemia, thrombocytopenia, electrolyte abnormality, her AST is mildly elevated at 41 and ALT of 50 slightly above previous, troponin is normal at 0.012, BNP of 70, lipase of 166 and TSH of 2.91. UA was negative for infection, this is most likely trapezius muscle strain on the left, hypertension and x-ray of her cervical spine shows degenerative disc and facet disease of her cervical spine. Discussed that this may be cervical radiculopathy. Opted to send patient home with prescriptions of lidocaine patches, tramadol, diazepam, and methocarbamol. Patient has sensitivity to all opiates and was concerned about her pain since she does not have adequate pain control with Tylenol and was instructed to not take ibuprofen due to the interaction with her blood pressure medication. I encouraged her to follow-up with Juanita Serrano next week for discussion about her blood pressure and to see if her injury has resolved. She may benefit from physical therapy referral, and or follow-up with orthopedics. Multiple causes of chest pain considered including CA, PE, pneumothorax, pneumonia, aortic dissection, and pleurisy. Patient reports no radiation, no diaphoresis, no provo cation with exertion, and no vomiting. Chest x-ray negative for acute abnormality. Patient is appropriate and amenable to discharge home. Vital signs are stable on repeat examination is unremarkable. Patient has been informed of results. Patient has been given strict return to ER precautions for any new or worsening symptoms. Patient understands to follow up closely with outpatient providers as instructed. Patient understands plan and agrees to discharge home. All questions and concerns answered at this time. <Lexi Beltrán, - Last Filed: 05/19/22 11:14> Lab Data Labs: Lab Results 05/18/22 05/18/22 05/18/22 Range/Units 15:00 15:00 15:00 WBC 8.0 (4.5-11.0) X10^3/uL RBC 4.88 (4.0-5.2) X10^6/uL Hgb 15.3 (12.0-16.0) g/dL Hct 44.8 (36-46) % MCV 91.6 (80-100) fL MCH 31.3 (26-34) PG MCHC 34.1 (30-36) % RDW 14.0 (11.6-14.8) % Plt Count 383 (150-400) X10^3/uL Neut % (Auto) 58.6 (50-75) % Lymph % (Auto) 29.6 (25-40) % [place] % (Auto) 9.2 (3-14) % Eos % (Auto) 2.0 (2-4) % Baso % (Auto) 0.6 (0-2) % Neut # (Auto) 4700 (1969-3102) /uL Lymph # (Auto) 2400 (4140-4611) /uL [place] # (Auto) 700 (0-900) /uL Eos # (Auto) 200 (0-450) /uL Baso # (Auto) 0 (0-100) /uL Sodium 139 (137-145) mmol/L Potassium 4.0 (3.4-5.1) mmol/L Chloride 101 (98-107) mmol/L Carbon Dioxide 30 (22-32) mmol/L BUN 19 H (7-17) mg/dL Creatinine 0.65 (0.52-1.04) mg/dL Estimated GFR > 60 (>60) mL/min BUN/Creatinine Ratio 29.2 H (6-22) Glucose 94 (80-110) mg/dL Calcium 9.1 (8.4-10.2) mg/dL Magnesium 1.8 (1.6-2.3) mg/dL Total Bilirubin 0.9 (0.2-1.3) mg/dL AST 41 H (14-36) IU/L ALT 50 H (<35) IU/L Alkaline Phosphatase 93 (38-126) U/L Total Creatine Kinase 73 (30-135) U/L CK-MB (CK-2) TNP CK-MB (CK-2) Rel Index TNP Troponin I < 0.012 (0.01-0.034) ng/mL NT-Pro-B Natriuret Pep 70 (<125) pg/mL Total Protein 8.2 (6.3-8.2) g/dL Albumin 4.5 (3.5-5.0) g/dL Globulin 3.7 (1.7-4.1) g/dL Albumin/Globulin Ratio 1.2 (1.0-2.8) Lipase 166 (23-300) U/L TSH (0.47-4.68) uIU/mL Urine Color Urine Appearance Urine pH (4.5-8.0) Ur Specific [place] (1.000-1.035) Urine Protein (Negative) Urine Glucose (UA) (Negative) g/dL Urine Ketones (NEGATIVE) Urine Occult Blood (Negative) Urine Nitrate (Negative) Urine Bilirubin (NEGATIVE) Urine Urobilinogen (0.2) E.U./dL Ur Leukocyte Esterase (NEGATIVE) Urine RBC (0-5/HPF) Urine WBC (0-5/HPF) Ur Squamous Epith Cells (0-5/HPF) Urine Bacteria (None) Ur Culture Indicated? 05/18/22 05/18/22 Range/Units 15:00 18:10 WBC (4.5-11.0) X10^3/uL RBC (4.0-5.2) X10^6/uL Hgb (12.0-16.0) g/dL Hct (36-46) % MCV (80-100) fL MCH (26-34) PG MCHC (30-36) % RDW (11.6-14.8) % Plt Count (150-400) X10^3/uL Neut % (Auto) (50-75) % Lymph % (Auto) (25-40) % [place] % (Auto) (3-14) % Eos % (Auto) (2-4) % Baso % (Auto) (0-2) % Neut # (Auto) (2563-5614) /uL Lymph # (Auto) (7197-7854) /uL [place] # (Auto) (0-900) /uL Eos # (Auto) (0-450) /uL Baso # (Auto) (0-100) /uL Sodium (137-145) mmol/L Potassium (3.4-5.1) mmol/L Chloride (98-107) mmol/L Carbon Dioxide (22-32) mmol/L BUN (7-17) mg/dL Creatinine (0.52-1.04) mg/dL Estimated GFR (>60) mL/min BUN/Creatinine Ratio (6-22) Glucose (80-110) mg/dL Calcium (8.4-10.2) mg/dL Magnesium (1.6-2.3) mg/dL Total Bilirubin (0.2-1.3) mg/dL AST (14-36) IU/L ALT (<35) IU/L Alkaline Phosphatase (38-126) U/L Total Creatine Kinase (30-135) U/L CK-MB (CK-2) CK-MB (CK-2) Rel Index Troponin I (0.01-0.034) ng/mL NT-Pro-B Natriuret Pep (<125) pg/mL Total Protein (6.3-8.2) g/dL Albumin (3.5-5.0) g/dL Globulin (1.7-4.1) g/dL Albumin/Globulin Ratio (1.0-2.8) Lipase (23-300) U/L TSH 2.91 (0.47-4.68) uIU/mL Urine Color Yellow Urine Appearance Clear Urine pH 5.0 (4.5-8.0) Ur Specific [place] 1.025 (1.000-1.035) Urine Protein Negative (Negative) Urine Glucose (UA) Trace H (Negative) g/dL Urine Ketones Negative (NEGATIVE) Urine Occult Blood Negative (Negative) Urine Nitrate Negative (Negative) Urine Bilirubin Negative (NEGATIVE) Urine Urobilinogen 0.2 (0.2) E.U./dL Ur Leukocyte Esterase Negative (NEGATIVE) Urine RBC None seen (0-5/HPF) Urine WBC 0-1/hpf (0-5/HPF) Ur Squamous Epith Cells 0-1 /hpf (0-5/HPF) Urine Bacteria Few (2-10) H (None) Ur Culture Indicated? Cult not indicated ECG Data Interpretation: EKG independently reviewed by Dr. Beltrán and reveals normal sinus rhythm at 63 bpm with regular axis and intervals. LVH by Quigley criteria. No STEMI, ST segment changes, arrhythmia, or acute ischemic changes. Leigh Ann-normal sinus rhythm rate 63 IA interval 170 QRS [address] changes T-wave inversion noted in V2 similar to previous EKG Discharge Plan Departure Patient Disposition: Home Clinical Impression: DDD (degenerative disc disease), cervical, Degenerative arthropathy of spinal facet joint Strain of left trapezius muscle Qualifiers: Encounter type: initial encounter Qualified Code(s): S46.812A - Strain of other muscles, fascia and tendons at shoulder and upper arm level, left arm, initial encounter Hypertension Qualifiers: Hypertension type: unspecified Qualified Code(s): I10 - Essential (primary) hypertension Instructions: DI for Muscle Strain, DI for Cervical Muscle Strain Activity Restrictions/Additional Instructions: *You have been diagnosed with degenerative disc and facet disease of your cervical spine (arthritis and disc space narrowing). You have tenderness over your left trapezius which attaches to the base of your head on the left upper neck and goes out to the lateral part of your shoulder. Sometimes when people have arthritis and degenerative disc disease, increased activity causes inflammation over the nerve root sending painful message into your arm. Please use muscle relaxers, anti-inflammatories, heat, ice, rest, and avoid over exerting yourself in the yd over the next few days. Please follow-up with Juanita Serrano about your blood pressure, I suspect that it was spiking up due to your pain. I am glad that it has come down with this medication. I will prescribe for you some muscle relaxers, some Valium which may help for daytime and will help relax you so that it will hopefully come d own, use heat, some rest, try to avoid over-exertion and working too hard in the garden as this may spasm again. Your lab work does not show any and organ dysfunction meaning your blood pressure was too high for too long. It is normal to go up like it did when you are having pain, please try to control your pain and follow-up with your doctor next week. CONTROLLED SUBSTANCE DISCHARGE (Narcotic/benzodiazepine/Flexeril/Phenergan) 1. You have been prescribed narcotic medications, it does have ac etaminophen/Tylenol/paracetamol in it, DO NOT TAKE MORE THAN 4,00mg in 24 hours of Tylenol. *Tramadol does not contain tylenol. 2. Please understand that we cannot provide further refills of narcotics, benzodiazepines or controlled substances through the ED and her pain management will need to be through your provider. 3. While on these medications you cannot drive or operate heavy machinery. 4. You cannot sign legal documents or perform any duties such as this. 5. As long as you are taking opiate pain medications he should also be taking a stool softener such as Colace, Dulcolax, MiraLAX or prune juice, to help avoid constipation. *What to do: *Please continue to take your regular medications as directed. x New medication prescriptions sent to your pharmacy: [ [facility] [ ] New medication written as a paper prescription [ ] No new medications given *Please follow up with your primary care provider in 2-3 days, call for an appointment. Let them know you were seen in the Emergency Department and that we asked that you be seen for follow-up. We will electronically transmit a record of today's note if your PCP is in our system *If you do not have a primary care provider please contact [phone] to establish care with one of the [facility] primary care providers. *Return to Emergency Department if you should have any new, worsening, or concerning symptoms, such as [fever greater than 101F, chills, worsening pain, persistent vomiting or other bothersome symptoms]. Prescriptions: New diazepam [Valium] 2 mg tablet 2 mg PO TID PRN (Reason: muscle spasm) Qty: 10 0RF methocarbamol 500 mg tablet 500 mg PO BEDTIME PRN (Reason: muscle spasm) Qty: 14 0RF tramadol 50 mg tablet 50 mg PO DAILY Qty: 10 0RF lidocaine [Lidoderm] 5 % adhesive patch,medicated 1 patch topical DAILY Qty: 15 0RF Rx Instructions: leave on most painful area for up to 12 hrs diclofenac sodium 1 % gel 2 g topical QID PRN (Reason: neck pain) Qty: 100 0RF Rx Instructions: apply to single elbow, wrist or hand; for hand includes palm/fingers/back of hand No Action trazodone 50 MG tablet 50 mg PO QDAY Qty: 0 paroxetine HCl [Paxil] 20 MG tablet 30 mg PO QDAY Qty: 0 metoprolol tartrate 25 MG tablet 50 mg PO BID Qty: 0 cholecalciferol (vitamin D3) [Vitamin D3] 1,000 UNIT tablet 1,000 iu PO Qty: 0 Fish Oil (#FISH OIL) 1 iu PO Qty: 0 Calcium Carbonate/Vitamin D (#CALCIUM) 3,000 cap PO Qty: 0 amlodipine 10 MG tablet 10 mg PO QDAY Qty: 0 docusate sodium 100 MG capsule 100 mg PO BID Qty: 20 1RF mineral oil-chondrus [Kondremul] 2.5 ML/5 ML emulsion 30 ml PO BID Qty: 720 1RF hydrocodone-acetaminophen 5 MG/325 MG tablet 1 - 2 tab PO Q4HP PRNQty: 30 0RF cetirizine 10 MG tablet 10 mg PO QDAY Qty: 0 losartan-hydrochlorothiazide 50-12.5 mg tablet 50 tab PO DAILY Label Comments: Take one tablet by mouth every morning for high blood pressure Referrals: Juanita Serrano PA-C [Primary Care Provider] - Visit Report Forms: Patient Portal/API <Lexi Beltrán DO - Last Filed: 05/19/22 11:14> Cosign ED Attending Cosryanature Attestation: I was immediately available in the department for consultation. Documentation has been reviewed. I agree with assessment and plan.
[2022-05-18] MEDS: methocarbamoL 500 MG TABLET PO (17:16)
[2022-05-18] MEDS: KETOROLAC 30 MG/ML VIAL 15 MG IV (17:16)
--- NOTE | 2022-05-18 17:34 | DI.RAD.S_ITS ---
PROCEDURE: XR CERVICAL SPINE 2V OR 3V INDICATIONS: DDD? TECHNIQUE: 3 view(s) of the cervical spine were acquired. COMPARISON: None. FINDINGS: Bones: No fractures or dislocations to the C6 level. Multilevel disc space narrowing and endplate osteophyte formation. Facet hypertrophy throughout the mid and lower cervical spine. The lateral masses of C1 appear intact on the odontoid view. No suspicious bony lesions. Soft tissues: No prevertebral soft tissue swelling. IMPRESSION: 1. Multilevel degenerative disc and facet disease. 2. No acute fracture. No osseous lesion. If symptoms and/or clinical suspicion for pathology persist, further assessment with repeat, or advanced imaging (e.g., CT, MRI, or bone scan) may be helpful for further assessment. Dictated by: Alexandra Smith M.D. on 05/18/2022 at 18:11 Approved by: Alexandra Smith M.D. on 05/18/2022 at 18:12
[2022-05-18] MEDS: diazePAM 10 MG/2 ML SYRINGE 2 MG IV (17:55)
[2022-05-18 18:12] LABS: NT-proBNP (BNP-Adult 18+) 70 pg/mL (<125)
[2022-05-18 18:35] LABS: Thyroid Stimulating Hormone 2.91 uIU/mL (0.47-4.68)
[2022-05-18 18:40] LABS: Appearance Urine UA CLEAR; Bilirubin Urine UA NEGATIVE (NEGATIVE); Color Urine UA YELLOW; Glucose Urine UA TRACE g/dL (Negative); Ketones Urine UA NEGATIVE (NEGATIVE); Leukocyte Esterase Urine UA NEGATIVE (NEGATIVE); Nitrite Urine UA NEGATIVE (Negative); Occult Blood Urine UA NEGATIVE (Negative); Protein Urine UA NEGATIVE (Negative); Specific Gravity Urine UA 1.025 (1.000-1.035); Urobilinogen Urine UA 0.2 E.U./dL (0.2)
[2022-05-18 19:25] LABS: Bacteria Urine Few (2-10); Culture Indicated Urine Cult Not Indicated; RBC Urine None Seen (0-5/HPF); Squamous Epithelial Cell Urine 0-1 /HPF (0-5/HPF); WBC Urine 0-1/HPF (0-5/HPF)
== END 2022-05-18 18:48 | disposition home or self-care (01) ==
PROVIDERS: Emergency Medicine; Emergency Provider Nurse Practitioner Critical Care Medicine; Family Provider Family Medicine; PCP Physician Assistant
DX: R07.9 Chest pain, unspecified (principal); I10 Essential (primary) hypertension; S46.812A Strain of other muscles, fascia and tendons at shoulder and upper arm level, left arm, initial encounter; M50.30 Other cervical disc degeneration, unspecified cervical region
CPT/HCPCS: 71045; 72040; 80053; 81001; 82550; 83690; 83735; 83880; 84443; 84484; 85025; 93005; 96374; 96375; 99284; J1885; J3360